=== PATIENT | female | born 1995 | race African-American/Black ===

== ENCOUNTER 2017-10-08 09:18 | Emergency (ER) | payer MEDICAID ==
[~2017-10-08] VITALS: Ht 160 cm; Wt 82.0 kg
[2017-10-08 09:33] VITALS: BP 136/95
== END 2017-10-08 18:39 | disposition left against medical advice (07) ==
LOC: ER 09:18
DX: Z53.21 Procedure and treatment not carried out due to patient leaving prior to being seen by health care provider (principal)

== ENCOUNTER 2020-11-12 10:31 | Emergency (ER) | payer MEDICAID ==
[~2020-11-12] VITALS: Ht 154.9 cm; Wt 100.0 kg
[2020-11-12 12:13] LABS: HCG SCREEN INDETERMINATE
[2020-11-12 13:00] VITALS: BP 149/96
== END 2020-11-12 13:00 | disposition home or self-care (01) ==
LOC: ER 10:31
DX: Z32.00 Encounter for pregnancy test, result unknown (principal); F12.10 Cannabis abuse, uncomplicated; Z98.890 Other specified postprocedural states; Z98.51 Tubal ligation status; Z88.5 Allergy status to narcotic agent
CPT/HCPCS: 36415; 81025; 84702; 84703; 99283